=== PATIENT | female | born 1960 | race Two or more races ===

== ENCOUNTER 2020-01-17 08:22 | Emergency (ER) | payer OTHER, BC ==
[~2020-01-17] VITALS: Ht 152.4 cm; Wt 68.0 kg
[2020-01-17] MEDS ORDERED: PYRIDIUM100 M1 PO (11:26)
== END 2020-01-17 11:35 | disposition home or self-care (01) ==
LOC: ER 08:22
DX: N39.0 Urinary tract infection, site not specified (principal); B96.20 Unspecified Escherichia coli [E. coli] as the cause of diseases classified elsewhere